=== PATIENT | male | born 1995 | race Caucasian/White ===

== ENCOUNTER 2019-04-12 11:32 | Emergency (ER) | payer SELFPAY ==
[2019-04-12 11:44] VITALS: BP 130/83; PULSE 92; TEMP 98.2; BMI 27.1
--- NOTE | 2019-04-12 11:54 | PDOC ---
History of Present Illness - General Chief Complaint: Cold Symptoms Stated Complaint: FEVER,CONGESTION Time Seen by Provider: 04/12/19 11:54 History Source: Patient Exam Limitations: No Limitations - History of Present Illness Initial Comments: 04/12/19 12:15 23 yo M w/ no sig PMHx comes in c/o 3-4 days of nasal congestion, post nasal drip, cough productive of yellowish sputum, tactile fever, and sinus pressure on the L side, no vomiting/diarrhea, no neck pain/stiffness, no rash, no recent travel, (+)sick contacts with similar symptoms at home. Pt took mucinex and tylenol with only minimal relief. Past History - Past Medical History Allergies/Adverse Reactions: Allergies Allergy/AdvReac Type Severity Reaction Status Date / Time No Known Allergies Allergy Verified 03/10/13 10:59 Home Medications: Ambulatory Orders Cetirizine HCl [Zyrtec] 10 mg PO DAILY PRN #30 tablet 03/10/13 No Home Medications 0 dose .ROUTE UTDICT 03/10/13 Fluticasone Prop 0.05% Nasal [Flonase -] 1 - 2 spray NS DAILY #1 spray.pump Ibuprofen [Motrin -] 600 mg PO QID 3 Days #20 tablet 04/12/19 Pseudoephedrine HCl [Sudafed] 30 mg PO TID 3 Days #20 tablet 04/12/19 Sodium Chloride [Saline Nasal Mist] 126 ml NS QID 5 Days #1 mist 04/12/19 COPD: No - Immunization History Immunization Up to Date: Yes - Psycho Social/Smoking Cessation Hx Smoking Status: No Smoking History: Never smoked Number of Cigarettes Smoked Daily: 0 Information on smoking cessation initiated: No Hx Alcohol Use: No Drug/Substance Use Hx: No Review of Systems - Review of Systems Able to Perform ROS?: Yes Constitutional: Yes: Fever. No: Chills, Malaise, Night Sweats HEENTM: Yes: Nose Congestion. No: Eye Pain, Recent change in vision, Throat Pain Respiratory: Yes: Cough. No: Shortness of Breath Cardiac (ROS): No: Chest Pain, Palpitations, Chest Tightness ABD/GI: No: Diarrhea, Nausea, Vomiting, Abdominal cramping : No: Dysuria, Hematuria Musculoskeletal: No: Back Pain Integumentary: No: Rash Neurological: No: Headache, Numbness, Dizziness Psychiatric: No: Change in Appetite Endocrine: No: Unexplained Weight Loss *Physical Exam - Vital Signs Last Vital Signs Temp Pulse Resp BP Pulse Ox 98.2 F 92 H 17 130/83 97 04/12/19 11:42 04/12/19 11:42 04/12/19 11:42 04/12/19 11:42 04/12/19 11:42 - Physical Exam General Appearance: Yes: Nourished. No: Apparent Distress HEENT: positive: RAHEEL, Normal Voice, Pharyngeal Erythema, Nasal Congestion, Other (post nasal drip. Mild L maxillary sinus tenderness and pressure with leaning forward.). negative: Pale Conjunctivae, Scleral Icterus (R), Scleral Icterus (L), Tonsillar Exudate, Tonsillar Erythema, TM Bulging, TM Erythema Neck: positive: Supple. negative: Decreased range of motion, Tender midline Respiratory/Chest: positive: Lungs Clear, Normal Breath Sounds. negative: Respiratory Distress, Accessory Muscle Use Cardiovascular: positive: Regular Rhythm, Regular Rate Gastrointestinal/Abdominal: positive: Normal Bowel Sounds, Soft. negative: Tender Musculoskeletal: positive: Normal Inspection. negative: CVA Tenderness, Decreased Range of Motion Extremity: positive: Normal Capillary Refill, Normal Inspection, Normal Range of Motion. negative: Tender, Pedal Edema Integumentary: positive: Normal Color, Dry. negative: Jaundice, Rash Neurologic: positive: Fully Oriented, Alert, Normal Mood/Affect Medical Decision Making - Medical Decision Making 04/12/19 12:19 23 yo M w/ URI, viral sinusitis. WIll discharge with sudafed, flonase, saline nasal spray, ibprofen PMD follow up. WIll refer to Dr. Coy. Drink lots of fluids. Return for worsening/concerning symptoms Pt verbalizes understanding and agrees with plan Discharge - Discharge Information Problems reviewed: Yes Clinical Impression/Diagnosis: Upper respiratory infection Qualifiers: URI type: unspecified viral URI Qualified Code(s): J06.9 - Acute upper respiratory infection, unspecified Sinusitis, acute Qualifiers: Sinusitis location: maxillary Recurrence: non-recurrent Qualified Code(s): J01.00 - Acute maxillary sinusitis, unspecified Condition: Stable Disposition: HOME - Additional Discharge Information Prescriptions: Fluticasone Prop 0.05% Nasal [Flonase -] 1 - 2 spray NS DAILY #1 spray.pump Ibuprofen [Motrin -] 600 mg PO QID 3 Days #20 tablet Pseudoephedrine HCl [Sudafed] 30 mg PO TID 3 Days #20 tablet Sodium Chloride [Saline Nasal Mist] 126 ml NS QID 5 Days #1 mist - Follow up/Referral - Patient Discharge Instructions Patient Printed Discharge Instructions: DI for Sinusitis, DI for Viral Upper Respiratory Infection -- Adult Additional Instructions: Rest and drink plenty of fluids. Return for worsening/concerning symptoms. - Post Discharge Activity
== END 2019-04-12 12:32 | disposition home or self-care (01) ==
LOC: JERFT 11:32
DX: J01.00 Acute maxillary sinusitis, unspecified (principal); J06.9 Acute upper respiratory infection, unspecified; B97.89 Other viral agents as the cause of diseases classified elsewhere
CPT/HCPCS: 99281-25

== ENCOUNTER 2019-05-01 19:54 | Emergency (ER) | payer SELFPAY ==
--- NOTE | 2019-05-01 20:02 | PDOC ---
Rapid Medical Evaluation Time Seen by Provider: 05/01/19 20:01 Medical Evaluation: Allergies Allergy/AdvReac Type Severity Reaction Status Date / Time No Known Allergies Allergy Verified 03/10/13 10:59 05/01/19 20:01 I have performed a brief in-person evaluation of this patient. The patient presents with a chief complaint of: L ear "clogged" x a few days, recent sinus infection Pertinent physical exam findings: well appearing, VSS I have ordered the following: nothing The patient will proceed to the ED for further evaluation. Discharge Disposition - Diagnosis Ear pain, left - Referrals - Patient Instructions - Post Discharge Activity
[2019-05-01 20:03] VITALS: BP 135/80; PULSE 79; TEMP 98.1; BMI 27.1
--- NOTE | 2019-05-01 20:46 | PDOC ---
History of Present Illness - General Chief Complaint: Ear Problem Stated Complaint: EAR PROBLEM Time Seen by Provider: 05/01/19 20:01 - History of Present Illness Initial Comments: 05/01/19 20:44 23-year-old male without comorbidities presents for evaluation of left ear pain x4 days without systemic symptoms. Recently treated for a viral sinus infection with Sudafed and Tylenol his ear pain developed about 4 days ago. He is continue the Sudafed without much relief. Past History - Past Medical History Allergies/Adverse Reactions: Allergies Allergy/AdvReac Type Severity Reaction Status Date / Time No Known Allergies Allergy Verified 05/01/19 20:01 Home Medications: Ambulatory Orders Cetirizine HCl [Zyrtec] 10 mg PO DAILY PRN #30 tablet 03/10/13 No Home Medications 0 dose .ROUTE UTDICT 03/10/13 Fluticasone Prop 0.05% Nasal [Flonase -] 1 - 2 spray NS DAILY #1 spray.pump Ibuprofen [Motrin -] 600 mg PO QID 3 Days #20 tablet 04/12/19 Pseudoephedrine HCl [Sudafed] 30 mg PO TID 3 Days #20 tablet 04/12/19 Sodium Chloride [Saline Nasal Mist] 126 ml NS QID 5 Days #1 mist 04/12/19 Amox-Tr/K Cl [Augmentin - 875Mg Tablet] 1 tab PO BID #20 tablet 05/01/19 COPD: No - Immunization History Immunization Up to Date: Yes - Psycho Social/Smoking Cessation Hx Smoking Status: No Smoking History: Current some day smoker Number of Cigarettes Smoked Daily: 0 Information on smoking cessation initiated: No Hx Alcohol Use: No Drug/Substance Use Hx: No Review of Systems - Review of Systems HEENTM: Yes: Ear Pain *Physical Exam - Vital Signs Last Vital Signs Temp Pulse Resp BP Pulse Ox 98.1 F 79 18 135/80 98 05/01/19 20:01 05/01/19 20:01 05/01/19 20:01 05/01/19 20:01 05/01/19 20:01 - Physical Exam Comments: 05/01/19 20:44 GENERAL: The patient is awake, alert, and fully oriented, in no acute distress. HEAD: Normal with no signs of trauma. EYES: sclera anicteric, conjunctiva clear. ENT: Right tympanic membrane and ear canal are normal left ear canal is normal tympanic membrane is mildly erythemic with a meniscus line and what appears to be purulence behind the tympanic membrane NECK: Normal range of motion LUNGS: Breath sounds equal, clear to auscultation bilaterally. No wheezes, and no crackles. HEART: S1 and S2 without murmur, rub or gallop. ABDOMEN: Soft, nontender, normoactive bowel sounds. No guarding, no rebound. No masses. EXTREMITIES: Normal range of motion, no edema. No clubbing or cyanosis. No cords, erythema, or tenderness. NEUROLOGICAL: Cranial nerves II through XII grossly intact. Normal speech, normal gait. PSYCH: Normal mood, normal affect. SKIN: Warm, Dry, normal turgor, no rashes or lesions noted. Medical Decision Making - Medical Decision Making 05/01/19 20:45 Augmentin for otitis media suppurativa follow-up with ENT Discharge - Discharge Information Problems reviewed: Yes Clinical Impression/Diagnosis: Ear pain, left, Otitis media, suppurative Condition: Stable Disposition: HOME - Admission No - Additional Discharge Information Prescriptions: Amox-Tr/K Cl [Augmentin - 875Mg Tablet] 1 tab PO BID #20 tablet - Follow up/Referral Referrals: Perez Daley MD [Staff Physician] - - Patient Discharge Instructions Additional Instructions: Please take the antibiotics as directed. Continue with the Sudafed as directed Tylenol and Motrin as directed for pain. Return to the emergency room for worsening symptoms and without fail please follow-up with your nose and throat doctor in 1 to 2 days for further evaluation and treatment options. - Post Discharge Activity
[2019-05-01] MEDS ORDERED: AMOX TR/POT CLAV 875MG/125MG TABLETS (FP) PO ONE (21:08)
== END 2019-05-01 20:51 | disposition home or self-care (01) ==
LOC: JERFT 19:54
DX: H66.002 Acute suppurative otitis media without spontaneous rupture of ear drum, left ear (principal); F17.210 Nicotine dependence, cigarettes, uncomplicated
CPT/HCPCS: 99281-25